=== PATIENT | male | born 2000 | race Two or more races ===

== ENCOUNTER 2022-03-28 16:37 | Emergency (ER) | payer MEDICAID, OTHER ==
[~2022-03-28] VITALS: Ht 170.2 cm; Wt 86.4 kg
[2022-03-28 16:43] VITALS: BP 139/80
--- NOTE | 2022-03-28 16:53 | NUR ---
BIB SELF C/O 04/12 PAINFUL URINATION X 6DAYS. PMH: ASTHMA , SCOLIOSIS
--- NOTE | 2022-03-28 17:07 | NUR ---
PT AMB TO BED 4.
[2022-03-28 19:18] LABS: APPEARANCE,URINE CLEAR (CLEAR); BILIRUBIN,URINE 1+ (NEGATIVE); BLOOD, URINE NEGATIVE (NEGATIVE); COLOR,URINE YELLOW (YELLOW); LEUKOCYTE ESTERASE ,URINE NEGATIVE (NEGATIVE); NITRITE, URINE NEGATIVE (NEGATIVE); UGLUCOSE NEGATIVE (NEGATIVE)
[2022-03-28 20:10] VITALS: BP 139/80
--- NOTE | 2022-03-28 20:10 | NUR ---
Patient discharged with v/s stable. Written and verbal after care instructions given and explained. Patient verbalized understanding. Ambulatory with steady gait. All questions addressed prior to discharge. Advised to follow up with PMD.
== END 2022-03-28 20:10 | disposition home or self-care (01) ==
LOC: MED 16:37
DX: K62.5 Hemorrhage of anus and rectum (principal); R30.0 Dysuria
CPT/HCPCS: 81003; 87086; 99283